=== PATIENT | female | born 1935 | race Caucasian/White ===

== ENCOUNTER 2023-06-19 22:28 | Inpatient (IN) | payer MEDICARE ==
[~2023-06-19 22:28] MED LIST: Iopamidol-370 76% 500 ML MDV (1 ML CHARGE) ONE
[2023-06-19 23:00] LABS: #Basophils 0.1 thou/uL (0.0-0.2); #Monocytes 2.8 thou/uL (0.11-0.59); %Basophils 0.2 % (0.0-1.0); %Lymphocytes 7.8 % (21.0-51.0); %Monocytes 11.1 % (0.0-10.0); %Neutrophils 79.9 % (42.0-75.0); Hematocrit 34.8 % (36.0-47.0); Hemoglobin 11.8 g/dL (12.0-16.0); Mean Corpuscular HGB CONC 33.9 g/dL (32.0-36.0); Mean Corpuscular Hemoglobin 28.6 pg (27.0-31.0); Mean Corpuscular Volume 84.3 fl (78.0-98.0); Mean Platelet Volume 9.6 fL (7.4-10.4); Platelet Count 360 10x3/uL (130-400); RBC Distribution Width 14.4 % (11.5-14.5); Red Blood Cell (RBC) Count 4.13 mill/uL (4.20-5.40)
[2023-06-19 23:22] LABS: ALT (SGPT) 15 U/L (8-55); AST (SGOT) 14 U/L (5-34); Albumin 3.4 g/dL (3.4-4.8); Alkaline Phosphatase 90 U/L (40-110); Anion Gap 11 mmol/L (10-20); BUN (Urea Nitrogen) 13 mg/dL (9.8-20.1); Bilirubin, Total 0.5 mg/dL (0.2-1.2); Calc. Creatinine Clearance 0 mL/min (70-130); Calcium 9.4 mg/dL (7.8-10.44); Carbon Dioxide 25 mmol/L (23-31); Chloride 94 mmol/L (98-107); Estimated GFR 88; Globulin 3.2 g/dL (2.4-3.5); Glucose 179 mg/dL (83-110); Potassium 3.4 mmol/L (3.5-5.1); Protein, Total 6.6 g/dL (5.8-8.1); Sodium 127 mmol/L (136-145)
[2023-06-20 00:04] LABS: INR-International Normal Ratio 1.1; Prothrombin Time 14.7 sec (12.0-14.7)
[2023-06-20 00:06] LABS: PTT 39.4 sec (22.9-36.1)
[2023-06-20] MEDS ORDERED: Acetaminophen 650 MG Suppository PR PRN (00:43)
[2023-06-20] MEDS ORDERED: Ondansetron ODT 4 MG TAB PO PRN (00:43)
[2023-06-20] MEDS ORDERED: Ondansetron PF 4 MG/2 ML Vial IVP PRN (00:43)
[2023-06-20] MEDS ORDERED: Dextrose 5% in Water 1,000 ML IV PRN (00:58)
[2023-06-20] MEDS ORDERED: Glucagon 1 MG/ML KIT IM PRN (00:58)
[2023-06-20] MEDS ORDERED: Dextrose 50% Abboject 50 ML SYRINGE SLOW IVP PRN (00:58)
[2023-06-20] MEDS ORDERED: HumaLOG 300 UNITS/3 ML VIAL SC PRN ×2 (00:58)
[2023-06-20] MEDS ORDERED: Piperacillin/Tazobactam 3.375 GM in Sodium Chloride 0.9% 100 ML IVPB SCH ×2 (02:00→06:00)
[2023-06-20] MEDS ORDERED: Pantoprazole 40 MG VIAL IVP SCH ×3 (02:00→09:00)
[2023-06-20 02:23] LABS: Hematocrit 37.8 % (36.0-47.0); Hemoglobin 12.6 g/dL (12.0-16.0); Mean Corpuscular HGB CONC 33.3 g/dL (32.0-36.0); Mean Corpuscular Hemoglobin 29.2 pg (27.0-31.0); Mean Platelet Volume 9.4 fL (7.4-10.4); Platelet Count 324 10x3/uL (130-400); RBC Distribution Width 14.5 % (11.5-14.5); Red Blood Cell (RBC) Count 4.31 mill/uL (4.20-5.40); White Blood Cell (WBC) Count 25.6 10x3/uL (4.8-10.8)
[2023-06-20 02:29] LABS: Delete Auto Diff?? YES; Manual Diff?? YES; Mean Corpuscular Volume 87.7 fl (78.0-98.0)
[2023-06-20 02:49] LABS: Anisocytosis SLIGHT = 6-15 cells HPF (0-5); Band 5 % (5-11); Burr Cells SLIGHT = 2-5 cells HPF (0-1); CellaVision Operator ID LAB.JMM; Large Platelets 0.9 % (0-5); Lymphocytes 4 % (21-51); Macrocytosis SLIGHT = 6-15 cells HPF (0-5); Monocytes 3 % (0-10); Neutrophil 87 % (42-75); Nucleated RBC (Manual Ct) 1 % (0); Platelet Adequacy Comment Platelets Normal; Smudge Cells 0.9 %; Total Cell Count 116
[2023-06-20 02:58] LABS: Anion Gap 15 mmol/L (10-20); BUN (Urea Nitrogen) 14 mg/dL (9.8-20.1); Calc. Creatinine Clearance 89 mL/min (70-130); Calcium 9.5 mg/dL (7.8-10.44); Carbon Dioxide 19 mmol/L (23-31); Chloride 95 mmol/L (98-107); Estimated GFR 87; Glucose 194 mg/dL (83-110); Magnesium 1.8 mg/dL (1.6-2.6); Potassium 3.3 mmol/L (3.5-5.1); Sodium 126 mmol/L (136-145)
[2023-06-20] MEDS: Sodium Chloride 0.9% 1,000 ML IV SCH ×3 (03:17→14:39)
[2023-06-20] MEDS: Piperacillin/Tazobactam 3.375 GM in Sodium Chloride 0.9% 100 ML IVPB SCH ×3 (03:18→21:02)
[2023-06-20] MEDS ORDERED: Potassium Chloride 20 MEQ in Premix Bag 1 BAG IVPB SCH (03:30)
[2023-06-20] MEDS ORDERED: Electrolyte Replacement Protocol 1 EACH FS PRN (03:45)
[2023-06-20] MEDS ORDERED: Magnesium 2 GM/50 ML(in water) 2 GM in Premix Bag 1 BAG IVPB SCH (06:00)
[2023-06-20] MEDS ORDERED: Electrolyte Replacement Protocol 1 EACH FS SCH (07:00)
[2023-06-20] MEDS: Pantoprazole 40 MG VIAL IVP SCH (09:30)
[2023-06-20 10:27] LABS: Anion Gap 12 mmol/L (10-20); BUN (Urea Nitrogen) 16 mg/dL (9.8-20.1); Calc. Creatinine Clearance 84 mL/min (70-130); Calcium 9.4 mg/dL (7.8-10.44); Carbon Dioxide 25 mmol/L (23-31); Chloride 95 mmol/L (98-107); Estimated GFR 85; Glucose 155 mg/dL (83-110); Potassium 3.2 mmol/L (3.5-5.1); Sodium 129 mmol/L (136-145)
[2023-06-20] MEDS ORDERED: Polyethylene Glycol 3350 17 GM Packet PO SCH (12:00)
[2023-06-20] MEDS: Acetaminophen 325 MG TAB PO PRN (18:47)
[2023-06-20] MEDS ORDERED: ALPRAZolam 0.5 MG TAB PO PRN (20:35)
[2023-06-20] MEDS ORDERED: Cyclobenzaprine 10 MG TAB PO PRN (20:35)
[2023-06-20] MEDS ORDERED: ALPRAZolam 0.5 MG TAB PO SCH (21:00)
[2023-06-20] MEDS: Docusate 100 MG CAP PO SCH (21:01)
[2023-06-20] MEDS: Polyethylene Glycol 3350 17 GM Packet PO SCH (21:02)
[2023-06-20] MEDS: traMADol HCl 50 MG TAB PO PRN (21:03)
[2023-06-21] MEDS: Sodium Chloride 0.9% 1,000 ML IV SCH ×2 (02:36→15:55)
[2023-06-21] MEDS: traMADol HCl 50 MG TAB PO PRN ×2 (02:36→13:50)
[2023-06-21] MEDS: Acetaminophen 325 MG TAB PO PRN (02:37)
[2023-06-21] MEDS: Piperacillin/Tazobactam 3.375 GM in Sodium Chloride 0.9% 100 ML IVPB SCH ×2 (03:31→13:50)
[2023-06-21] MEDS ORDERED: Morphine 2 MG/ML VIAL SLOW IVP SCH (04:15)
[2023-06-21 05:28] VITALS: BMI 31.5
[2023-06-21] MEDS ORDERED: Fleet Saline Enema 133 ML BOT PR SCH (06:00)
[2023-06-21 06:26] LABS: #Basophils 0.1 thou/uL (0.0-0.2); #Monocytes 1.4 thou/uL (0.11-0.59); #Neutrophils 9.5 thou/uL (1.40-6.50); %Basophils 0.5 % (0.0-1.0); %Eosinophils 0.1 % (0.0-10.0); %Monocytes 10.8 % (0.0-10.0); %Neutrophils 74.1 % (42.0-75.0); Hematocrit 32.9 % (36.0-47.0); Hemoglobin 10.8 g/dL (12.0-16.0); Mean Corpuscular HGB CONC 32.8 g/dL (32.0-36.0); Mean Corpuscular Volume 88.4 fl (78.0-98.0); Mean Platelet Volume 9.9 fL (7.4-10.4); Platelet Count 306 10x3/uL (130-400); RBC Distribution Width 14.5 % (11.5-14.5); Red Blood Cell (RBC) Count 3.72 mill/uL (4.20-5.40); White Blood Cell (WBC) Count 12.8 10x3/uL (4.8-10.8)
[2023-06-21 06:31] LABS: Anion Gap 9 mmol/L (10-20); BUN (Urea Nitrogen) 13 mg/dL (9.8-20.1); Calc. Creatinine Clearance 99 mL/min (70-130); Calcium 8.9 mg/dL (7.8-10.44); Carbon Dioxide 27 mmol/L (23-31); Chloride 99 mmol/L (98-107); Estimated GFR 89; Glucose 156 mg/dL (83-110); Potassium 3.1 mmol/L (3.5-5.1); Sodium 132 mmol/L (136-145)
[2023-06-21] MEDS ORDERED: Potassium Chloride 20 MEQ TAB PO SCH (08:00)
[2023-06-21] MEDS: Polyethylene Glycol 3350 17 GM Packet PO SCH (08:25)
[2023-06-21] MEDS: Docusate 100 MG CAP PO SCH (08:26)
[2023-06-21] MEDS: Pantoprazole 40 MG VIAL IVP SCH (08:27)
[2023-06-21 08:44] VITALS: TEMP 97.9
[2023-06-21] MEDS ORDERED: Citalopram 10 MG TAB PO SCH (09:00)
[2023-06-21] MEDS ORDERED: fentaNYL 50 mcg/mL 1 mL Vial ONE ×2 (11:08→12:39)
[2023-06-21] MEDS ORDERED: PROPOFOL 200 MG/20 ML VIAL ONE (12:06)
[2023-06-21] MEDS ORDERED: Lidocaine 1% PF 5 ML VIAL ONE (12:06)
[2023-06-21] MEDS ORDERED: Ondansetron HCl/PF 4 MG/2 ML Vial IVP PRN (12:28)
[2023-06-21] MEDS ORDERED: ALPRAZolam 0.5 MG TAB PO SCH (16:00)
[2023-06-21 17:52] VITALS: BP 138/75
== END 2023-06-21 17:55 | DRG 872 ==
LOC: ERS 22:28 → CCU 06-20 00:19 → T4-A 06-20 12:37
PROVIDERS: ADMIT Student in an Organized Health Care Education/Training Program; ATTEND Internal Medicine
PROC: 30233N1 Transfusion of Nonautologous Red Blood Cells into Peripheral Vein, Percutaneous Approach (ICD-10-PCS; 2023-06-19)
PROC: 0DJD8ZZ Inspection of Lower Intestinal Tract, Via Natural or Artificial Opening Endoscopic (ICD-10-PCS; principal; 2023-06-21)
DX: A41.9 Sepsis, unspecified organism (principal); K51.211 Ulcerative (chronic) proctitis with rectal bleeding; N39.0 Urinary tract infection, site not specified; K92.2 Gastrointestinal hemorrhage, unspecified; D62 Acute posthemorrhagic anemia; E87.1 Hypo-osmolality and hyponatremia; A09 Infectious gastroenteritis and colitis, unspecified; K59.00 Constipation, unspecified; E78.5 Hyperlipidemia, unspecified; R29.6 Repeated falls; E87.6 Hypokalemia; I71.40 Abdominal aortic aneurysm, without rupture, unspecified; I25.10 Atherosclerotic heart disease of native coronary artery without angina pectoris; I12.9 Hypertensive chronic kidney disease with stage 1 through stage 4 chronic kidney disease, or unspecified chronic kidney disease; E11.22 Type 2 diabetes mellitus with diabetic chronic kidney disease; N18.2 Chronic kidney disease, stage 2 (mild); E66.9 Obesity, unspecified; Z96.653 Presence of artificial knee joint, bilateral; Z79.82 Long term (current) use of aspirin; Z79.899 Other long term (current) drug therapy; Z90.89 Acquired absence of other organs; Z68.31 Body mass index [BMI] 31.0-31.9, adult; E89.0 Postprocedural hypothyroidism
CPT/HCPCS: 36415; 36416; 36430; 51701; 70450; 71045; 71275; 72125; 74177; 80048; 80053; 81001; 83605; 83690; 83735; 83880; 84145; 84443; 84484; 85025; 85379; 85610; 85730; 86140; 86850; 86900; 86901; 87040; 87077; 87086; 87186; 93005; 94760; 96365; 96366; C9113; J0696; J1815; J2272; J2543; J2704; J3010; J3475; J3480; J3490; J7050; P9016; Q9967

== ENCOUNTER 2023-06-25 21:13 | Observation (INO) | payer MEDICARE ==
[2023-06-25 21:48] LABS: #Basophils 0.1 thou/uL (0.0-0.2); #Monocytes 1.2 thou/uL (0.11-0.59); #Neutrophils 5.8 thou/uL (1.40-6.50); %Basophils 0.5 % (0.0-1.0); %Eosinophils 0.2 % (0.0-10.0); %Lymphocytes 28.1 % (21.0-51.0); %Monocytes 11.6 % (0.0-10.0); %Neutrophils 55.3 % (42.0-75.0); Hematocrit 30.6 % (36.0-47.0); Hemoglobin 9.9 g/dL (12.0-16.0); Mean Corpuscular HGB CONC 32.4 g/dL (32.0-36.0); Mean Corpuscular Volume 89.7 fl (78.0-98.0); Mean Platelet Volume 8.8 fL (7.4-10.4); Platelet Count 351 10x3/uL (130-400); RBC Distribution Width 14.9 % (11.5-14.5); Red Blood Cell (RBC) Count 3.41 mill/uL (4.20-5.40); White Blood Cell (WBC) Count 10.5 10x3/uL (4.8-10.8)
[2023-06-25 22:02] LABS: PTT 33.7 sec (22.9-36.1); Prothrombin Time 13.9 sec (12.0-14.7)
[2023-06-25] MEDS ORDERED: Pantoprazole 40 MG VIAL ONE (22:42)
[2023-06-25] MEDS ORDERED: Morphine 4 MG/ML VIAL ONE (22:42)
[2023-06-25 22:53] LABS: ALT (SGPT) 21 U/L (8-55); AST (SGOT) 17 U/L (5-34); Albumin 3.3 g/dL (3.4-4.8); Alkaline Phosphatase 81 U/L (40-110); Anion Gap 12 mmol/L (10-20); BUN (Urea Nitrogen) 13 mg/dL (9.8-20.1); Bilirubin, Total 0.2 mg/dL (0.2-1.2); Calc. Creatinine Clearance 0 mL/min (70-130); Calcium 9.3 mg/dL (7.8-10.44); Carbon Dioxide 26 mmol/L (23-31); Chloride 101 mmol/L (98-107); Estimated GFR 81; Globulin 2.7 g/dL (2.4-3.5); Glucose 166 mg/dL (83-110); Iron 34 ug/dL (50-170); Iron Binding Capacity, Total 278 mcg/dL (265-497); Potassium 4.1 mmol/L (3.5-5.1); Sodium 135 mmol/L (136-145)
[2023-06-26] MEDS ORDERED: Ondansetron PF 4 MG/2 ML Vial IVP PRN (00:03)
[2023-06-26] MEDS ORDERED: Acetaminophen 650 MG Suppository PR PRN (00:03)
[2023-06-26] MEDS ORDERED: Ondansetron ODT 4 MG TAB PO PRN (00:03)
[2023-06-26] MEDS ORDERED: Acetaminophen 325 MG TAB PO PRN (00:03)
[2023-06-26 01:11] VITALS: BMI 29.7
[2023-06-26] MEDS ORDERED: Glucagon 1 MG/ML KIT IM PRN (01:43)
[2023-06-26] MEDS ORDERED: HumaLOG 300 UNITS/3 ML VIAL SC PRN ×2 (01:43)
[2023-06-26] MEDS ORDERED: Dextrose 5% in Water 1,000 ML IV PRN (01:43)
[2023-06-26] MEDS ORDERED: Dextrose 50% Abboject 50 ML SYRINGE SLOW IVP PRN (01:43)
[2023-06-26] MEDS: Morphine 4 MG/ML VIAL SLOW IVP PRN ×2 (02:17→06:15)
[2023-06-26] MEDS: Sodium Chloride 0.9% 1,000 ML IV SCH ×2 (02:19→07:29)
[2023-06-26 02:22] LABS: #Basophils 0.1 thou/uL (0.0-0.2); #Monocytes 1.1 thou/uL (0.11-0.59); #Neutrophils 6.4 thou/uL (1.40-6.50); %Basophils 0.5 % (0.0-1.0); %Eosinophils 0.1 % (0.0-10.0); %Lymphocytes 25.4 % (21.0-51.0); %Monocytes 10.1 % (0.0-10.0); %Neutrophils 57.8 % (42.0-75.0); Hematocrit 28.5 % (36.0-47.0); Hemoglobin 9.2 g/dL (12.0-16.0); Mean Corpuscular HGB CONC 32.9 g/dL (32.0-36.0); Mean Corpuscular Hemoglobin 29.1 pg (27.0-31.0); Mean Corpuscular Volume 88.6 fl (78.0-98.0); Platelet Count 324 10x3/uL (130-400); RBC Distribution Width 14.7 % (11.5-14.5); Red Blood Cell (RBC) Count 3.16 mill/uL (4.20-5.40)
[2023-06-26 02:52] LABS: Troponin I Less than 0.010 ng/mL (< 0.028)
[2023-06-26 03:04] LABS: Anion Gap 11 mmol/L (10-20); BUN (Urea Nitrogen) 13 mg/dL (9.8-20.1); Calc. Creatinine Clearance 94 mL/min (70-130); Calcium 8.9 mg/dL (7.8-10.44); Carbon Dioxide 25 mmol/L (23-31); Chloride 104 mmol/L (98-107); Estimated GFR 88; Glucose 146 mg/dL (83-110); Potassium 4.1 mmol/L (3.5-5.1); Sodium 136 mmol/L (136-145)
[2023-06-26 03:10] LABS: Troponin I Less than 0.010 ng/mL (< 0.028)
[2023-06-26] MEDS ORDERED: Fleet Saline Enema 133 ML BOT PR SCH (11:15)
[2023-06-26] MEDS ORDERED: HYDROcodone/Acetaminophen 5/325 mg Tablet PO PRN (13:07)
[2023-06-26] MEDS ORDERED: Cyclobenzaprine 10 MG TAB PO PRN (13:07)
[2023-06-26] MEDS ORDERED: ALPRAZolam 0.5 MG TAB PO PRN (13:07)
[2023-06-26 13:19] VITALS: TEMP 98
[2023-06-26] MEDS ORDERED: PROPOFOL 200 MG/20 ML VIAL ONE (14:15)
[2023-06-26 17:02] VITALS: BP 142/82
[2023-06-26] MEDS ORDERED: Polyethylene Glycol 3350 17 GM Packet PO SCH (21:00)
[2023-06-26] MEDS ORDERED: Senokot S 8.6-50 MG TAB PO SCH (21:00)
[2023-06-26] MEDS ORDERED: Non-Formulary Item 1 EACH (Cholecalciferol (Vitamin D3) [Vitamin D3] 125 MCG Tablet) PO SCH (21:00)
[2023-06-27] MEDS ORDERED: Multivit, Therapeutic 1 TAB PO SCH (09:00)
[2023-06-27] MEDS ORDERED: Isosorbide Mononitrate 30 MG ER.TAB PO SCH (09:00)
[2023-06-27] MEDS ORDERED: Calcium Carbonate 500 MG TAB PO SCH (09:00)
[2023-06-27] MEDS ORDERED: Saccharomyces boulardii 250 MG CAP PO SCH (09:00)
[2023-06-27] MEDS ORDERED: Citalopram 10 MG TAB PO SCH (09:00)
== END 2023-06-26 17:56 ==
LOC: ERS 21:13 → T4-A 22:57 → INTOOBSV 22:57
PROVIDERS: ADMIT Student in an Organized Health Care Education/Training Program; ATTEND Family Medicine
PROC: 0W3P8ZZ Control Bleeding in Gastrointestinal Tract, Via Natural or Artificial Opening Endoscopic (ICD-10-PCS; principal; 2023-06-26)
DX: K92.2 Gastrointestinal hemorrhage, unspecified (principal); D62 Acute posthemorrhagic anemia; E11.9 Type 2 diabetes mellitus without complications; F41.8 Other specified anxiety disorders; K51.80 Other ulcerative colitis without complications; K52.89 Other specified noninfective gastroenteritis and colitis; K59.00 Constipation, unspecified; I10 Essential (primary) hypertension; I25.10 Atherosclerotic heart disease of native coronary artery without angina pectoris; G83.4 Cauda equina syndrome; Z96.653 Presence of artificial knee joint, bilateral; Z79.4 Long term (current) use of insulin; Z79.899 Other long term (current) drug therapy; Z79.891 Long term (current) use of opiate analgesic; Z90.89 Acquired absence of other organs
CPT/HCPCS: 36415; 36416; 74177; 80048; 80053; 82728; 83540; 83550; 84484; 85025; 85610; 85730; 86850; 86900; 86901; 96374; 96375; C9113; J2270; J2704; J7050; Q9967

== ENCOUNTER 2023-08-04 13:24 | Emergency (ER) | payer MEDICARE ==
[2023-08-04] MEDS ORDERED: Nitrofurantoin Monohyd/M-Cryst 100 MG CAP ONE (15:10)
== END 2023-08-04 15:11 | disposition home or self-care (01) ==
LOC: ERS 13:24
DX: N39.0 Urinary tract infection, site not specified (principal); E78.5 Hyperlipidemia, unspecified; I10 Essential (primary) hypertension; E11.9 Type 2 diabetes mellitus without complications

== ENCOUNTER 2023-08-05 18:41 | Inpatient (IN) | payer MEDICARE ==
[2023-08-05 20:08] LABS: #Monocytes 0.9 thou/uL (0.11-0.59); #Neutrophils 3.5 thou/uL (1.40-6.50); %Basophils 0.4 % (0.0-1.0); %Lymphocytes 33.7 % (21.0-51.0); %Monocytes 13.2 % (0.0-10.0); Hematocrit 34.7 % (36.0-47.0); Hemoglobin 10.9 g/dL (12.0-16.0); Mean Corpuscular HGB CONC 31.4 g/dL (32.0-36.0); Mean Corpuscular Hemoglobin 27.5 pg (27.0-31.0); Mean Corpuscular Volume 87.4 fl (78.0-98.0); Mean Platelet Volume 9.2 fL (7.4-10.4); Platelet Count 286 10x3/uL (130-400); RBC Distribution Width 14.7 % (11.5-14.5); Red Blood Cell (RBC) Count 3.97 mill/uL (4.20-5.40); White Blood Cell (WBC) Count 6.7 10x3/uL (4.8-10.8)
[2023-08-05 20:32] LABS: ALT (SGPT) 9 U/L (8-55); AST (SGOT) 13 U/L (5-34); Albumin 3.9 g/dL (3.4-4.8); Alkaline Phosphatase 89 U/L (40-110); Anion Gap 15 mmol/L (10-20); BUN (Urea Nitrogen) 13 mg/dL (9.8-20.1); Bilirubin, Total Less than 0.2 mg/dL (0.2-1.2); Calc. Creatinine Clearance 0 mL/min (70-130); Calcium 9.7 mg/dL (7.8-10.44); Carbon Dioxide 24 mmol/L (23-31); Chloride 99 mmol/L (98-107); Estimated GFR 86; Globulin 2.9 g/dL (2.4-3.5); Glucose 151 mg/dL (83-110); Potassium 3.9 mmol/L (3.5-5.1); Protein, Total 6.8 g/dL (5.8-8.1); Sodium 134 mmol/L (136-145)
[2023-08-05] MEDS ORDERED: Acetaminophen 650 MG Suppository PR PRN (21:01)
[2023-08-05] MEDS ORDERED: Acetaminophen 325 MG TAB PO PRN (21:01)
[2023-08-05] MEDS ORDERED: Ondansetron ODT 4 MG TAB PO PRN (21:01)
[2023-08-05] MEDS ORDERED: Ondansetron PF 4 MG/2 ML Vial IVP PRN (21:01)
[2023-08-05] MEDS ORDERED: HumaLOG 300 UNITS/3 ML VIAL SC PRN ×2 (21:16)
[2023-08-05] MEDS ORDERED: Dextrose 50% Abboject 50 ML SYRINGE SLOW IVP PRN (21:16)
[2023-08-05] MEDS ORDERED: Glucagon 1 MG/ML KIT IM PRN (21:16)
[2023-08-05] MEDS ORDERED: Dextrose 5% in Water 1,000 ML IV PRN (21:16)
[2023-08-05] MEDS ORDERED: Piperacillin/Tazobactam 4.5 GM in Sodium Chloride 0.9% 100 ML IVPB SCH (23:00)
[2023-08-06] MEDS: Sodium Chloride 0.9% 1,000 ML IV SCH ×2 (00:48→09:04)
[2023-08-06 01:06] VITALS: BMI 31.1
[2023-08-06] MEDS: Melatonin 3 MG TAB PO PRN ×2 (02:16→20:47)
[2023-08-06] MEDS: traMADol HCl 50 MG TAB PO PRN ×3 (02:16→16:43)
[2023-08-06] MEDS: Piperacillin/Tazobactam 3.375 GM in Sodium Chloride 0.9% 100 ML IVPB SCH ×3 (04:34→20:47)
[2023-08-06 05:55] LABS: #Monocytes 0.9 thou/uL (0.11-0.59); #Neutrophils 3.3 thou/uL (1.40-6.50); %Basophils 0.4 % (0.0-1.0); %Lymphocytes 25.1 % (21.0-51.0); %Monocytes 15.6 % (0.0-10.0); %Neutrophils 58.4 % (42.0-75.0); Hematocrit 34.4 % (36.0-47.0); Hemoglobin 10.4 g/dL (12.0-16.0); Mean Corpuscular HGB CONC 30.2 g/dL (32.0-36.0); Mean Corpuscular Hemoglobin 26.8 pg (27.0-31.0); Mean Corpuscular Volume 88.7 fl (78.0-98.0); Mean Platelet Volume 9.3 fL (7.4-10.4); Platelet Count 312 10x3/uL (130-400); RBC Distribution Width 14.6 % (11.5-14.5); Red Blood Cell (RBC) Count 3.88 mill/uL (4.20-5.40); White Blood Cell (WBC) Count 5.7 10x3/uL (4.8-10.8)
[2023-08-06 06:29] LABS: Anion Gap 12 mmol/L (10-20); BUN (Urea Nitrogen) 9 mg/dL (9.8-20.1); Calc. Creatinine Clearance 110 mL/min (70-130); Calcium 9.4 mg/dL (7.8-10.44); Carbon Dioxide 28 mmol/L (23-31); Chloride 101 mmol/L (98-107); Estimated GFR 90; Glucose 128 mg/dL (83-110); Potassium 3.5 mmol/L (3.5-5.1); Sodium 137 mmol/L (136-145)
[2023-08-06] MEDS: ALPRAZolam 1 MG TAB PO PRN (16:44)
[2023-08-06] MEDS: Cholecalciferol 1,000 UNITS (25 MCG) TAB PO SCH (20:47)
[2023-08-07] MEDS: traMADol HCl 50 MG TAB PO PRN ×3 (00:26→20:08)
[2023-08-07] MEDS: ALPRAZolam 1 MG TAB PO PRN ×3 (00:26→20:14)
[2023-08-07] MEDS: Sodium Chloride 0.9% 1,000 ML IV SCH ×2 (00:28→12:40)
[2023-08-07] MEDS: Piperacillin/Tazobactam 3.375 GM in Sodium Chloride 0.9% 100 ML IVPB SCH ×3 (03:47→20:03)
[2023-08-07 06:53] LABS: #Monocytes 0.9 thou/uL (0.11-0.59); #Neutrophils 3.5 thou/uL (1.40-6.50); %Basophils 0.2 % (0.0-1.0); %Eosinophils 0.2 % (0.0-10.0); %Lymphocytes 27.3 % (21.0-51.0); %Monocytes 14.2 % (0.0-10.0); %Neutrophils 57.8 % (42.0-75.0); Hematocrit 36.8 % (36.0-47.0); Hemoglobin 11.1 g/dL (12.0-16.0); Mean Corpuscular HGB CONC 30.2 g/dL (32.0-36.0); Mean Corpuscular Hemoglobin 26.6 pg (27.0-31.0); Mean Platelet Volume 10.4 fL (7.4-10.4); Platelet Count 316 10x3/uL (130-400); RBC Distribution Width 14.6 % (11.5-14.5); Red Blood Cell (RBC) Count 4.18 mill/uL (4.20-5.40); White Blood Cell (WBC) Count 6.1 10x3/uL (4.8-10.8)
[2023-08-07 07:20] LABS: Anion Gap 14 mmol/L (10-20); BUN (Urea Nitrogen) 9 mg/dL (9.8-20.1); Calc. Creatinine Clearance 112 mL/min (70-130); Calcium 9.8 mg/dL (7.8-10.44); Carbon Dioxide 27 mmol/L (23-31); Chloride 102 mmol/L (98-107); Estimated GFR 90; Glucose 113 mg/dL (83-110); Potassium 3.6 mmol/L (3.5-5.1); Sodium 139 mmol/L (136-145)
[2023-08-07] MEDS: Cholecalciferol 1,000 UNITS (25 MCG) TAB PO SCH ×2 (09:18→20:03)
[2023-08-07] MEDS: Citalopram 20 MG TAB PO SCH (09:19)
[2023-08-07] MEDS: Isosorbide Mononitrate 30 MG ER.TAB PO SCH (09:19)
[2023-08-07] MEDS: Melatonin 3 MG TAB PO PRN (20:14)
[2023-08-08] MEDS: traMADol HCl 50 MG TAB PO PRN ×3 (00:50→12:05)
[2023-08-08] MEDS: Piperacillin/Tazobactam 3.375 GM in Sodium Chloride 0.9% 100 ML IVPB SCH ×2 (04:10→12:04)
[2023-08-08] MEDS: ALPRAZolam 1 MG TAB PO PRN ×2 (04:10→12:05)
[2023-08-08] MEDS: Cholecalciferol 1,000 UNITS (25 MCG) TAB PO SCH (09:20)
[2023-08-08] MEDS: Citalopram 20 MG TAB PO SCH (09:20)
[2023-08-08] MEDS: Isosorbide Mononitrate 30 MG ER.TAB PO SCH (09:20)
[2023-08-08 16:16] VITALS: BP 107/70; TEMP 97.5
== END 2023-08-08 15:24 | disposition home or self-care (01) | DRG 690 ==
LOC: ERS 18:41 → T4-A 20:58
PROVIDERS: ADMIT Student in an Organized Health Care Education/Training Program; ATTEND Family Medicine
DX: N30.00 Acute cystitis without hematuria (principal); E87.1 Hypo-osmolality and hyponatremia; I10 Essential (primary) hypertension; E78.5 Hyperlipidemia, unspecified; E11.9 Type 2 diabetes mellitus without complications; H91.90 Unspecified hearing loss, unspecified ear; R29.6 Repeated falls; Z79.899 Other long term (current) drug therapy; F32.A Depression, unspecified; Z96.653 Presence of artificial knee joint, bilateral; B96.89 Other specified bacterial agents as the cause of diseases classified elsewhere; Z90.89 Acquired absence of other organs; Z79.4 Long term (current) use of insulin
CPT/HCPCS: 36415; 36416; 80048; 80053; 85025; 93005; 96374; 99283; J1650; J2543; J3490; J7050

== ENCOUNTER 2023-08-31 17:59 | Inpatient (IN) | payer MEDICARE ==
[2023-08-31 19:32] LABS: Bacteria/HPF 1+ HPF (None Seen); Bilirubin Negative (Negative); Blood, Urine 1+ (Negative); CAUTI Indications for Culture Alt mental st,lethar; Clarity Turbid (Clear); Glucose, Urine (Dipstick) Normal (Negative); Ketone, Urine Negative (Negative); Leukocyte 500 Leu/uL (Negative); Nitrite Negative (Negative); Protein, Urine (Dipstick) 10 mg/dL (Neg-Trace); Specific Gravity, Urine 1.013 (1.002-1.036); Squamous Epithelial 0-3 HPF (0-3); Urine Culture Reflex Yes Yes; Urobilinogen Normal mg/dL (Less than 2); WBC/HPF Greater than 50 HPF (0-3); Yeast-Budding 2+ HPF (None Seen); pH, Urine 6.5 (5.0-9.0)
[2023-08-31 19:46] LABS: #Monocytes 0.9 thou/uL (0.11-0.59); #Neutrophils 3.3 thou/uL (1.40-6.50); %Basophils 0.5 % (0.0-1.0); %Eosinophils 0.2 % (0.0-10.0); %Lymphocytes 32.4 % (21.0-51.0); %Neutrophils 52.4 % (42.0-75.0); Hemoglobin 11.3 g/dL (12.0-16.0); Mean Corpuscular HGB CONC 30.5 g/dL (32.0-36.0); Mean Corpuscular Hemoglobin 25.9 pg (27.0-31.0); Mean Corpuscular Volume 84.7 fl (78.0-98.0); Mean Platelet Volume 9.1 fL (7.4-10.4); Platelet Count 310 10x3/uL (130-400); RBC Distribution Width 14.8 % (11.5-14.5); Red Blood Cell (RBC) Count 4.37 mill/uL (4.20-5.40); White Blood Cell (WBC) Count 6.4 10x3/uL (4.8-10.8)
[2023-08-31] MEDS ORDERED: Meropenem 1 GM in Sodium Chloride 0.9% 100 ML IVPB SCH (20:00)
[2023-08-31 20:12] LABS: Albumin 3.5 g/dL (3.4-4.8)
[2023-08-31 20:13] LABS: Chloride 103 mmol/L (98-107); Sodium 136 mmol/L (136-145)
[2023-08-31 20:14] LABS: Calcium 9.6 mg/dL (7.8-10.44); Glucose 132 mg/dL (83-110)
[2023-08-31 20:15] LABS: Protein, Total 7.5 g/dL (5.8-8.1)
[2023-08-31 20:16] LABS: Anion Gap 16 mmol/L (10-20); Bilirubin, Total Less than 0.2 mg/dL (0.2-1.2); Carbon Dioxide 21 mmol/L (23-31)
[2023-08-31 20:17] LABS: Alkaline Phosphatase 87 U/L (40-110)
[2023-08-31 20:18] LABS: Calc. Creatinine Clearance 0 mL/min (70-130); Estimated GFR 86
[2023-08-31 20:19] LABS: BUN (Urea Nitrogen) 13 mg/dL (9.8-20.1)
[2023-08-31 20:20] LABS: ALT (SGPT) 11 U/L (8-55); AST (SGOT) 20 U/L (5-34)
[2023-08-31] MEDS ORDERED: Acetaminophen 325 MG TAB PO PRN (23:27)
[2023-08-31] MEDS ORDERED: Ondansetron ODT 4 MG TAB PO PRN (23:27)
[2023-08-31] MEDS ORDERED: HumaLOG 300 UNITS/3 ML VIAL SC PRN ×2 (23:27)
[2023-08-31] MEDS ORDERED: Dextrose 5% in Water 1,000 ML IV PRN (23:27)
[2023-08-31] MEDS ORDERED: Ondansetron PF 4 MG/2 ML Vial IVP PRN (23:27)
[2023-08-31] MEDS ORDERED: Glucagon 1 MG/ML KIT IM PRN (23:27)
[2023-08-31] MEDS ORDERED: Dextrose 50% Abboject 50 ML SYRINGE SLOW IVP PRN (23:27)
[2023-09-01] MEDS ORDERED: Calcium Carbonate 500 MG ChewTAB PO PRN (01:01)
[2023-09-01] MEDS ORDERED: Polyethylene Glycol 3350 17 GM Packet PO PRN (01:01)
[2023-09-01] MEDS ORDERED: ALIROCUMAB 150 MG/ML SC SCH (01:15)
[2023-09-01 02:35] VITALS: BMI 31.0
[2023-09-01 06:22] LABS: #Monocytes 0.8 thou/uL (0.11-0.59); #Neutrophils 3.1 thou/uL (1.40-6.50); %Basophils 0.4 % (0.0-1.0); %Eosinophils 0.2 % (0.0-10.0); %Monocytes 14.9 % (0.0-10.0); Hematocrit 35.2 % (36.0-47.0); Hemoglobin 10.8 g/dL (12.0-16.0); Mean Corpuscular HGB CONC 30.7 g/dL (32.0-36.0); Mean Corpuscular Hemoglobin 25.3 pg (27.0-31.0); Mean Corpuscular Volume 82.4 fl (78.0-98.0); Mean Platelet Volume 9.3 fL (7.4-10.4); Platelet Count 311 10x3/uL (130-400); RBC Distribution Width 14.9 % (11.5-14.5); Red Blood Cell (RBC) Count 4.27 mill/uL (4.20-5.40); White Blood Cell (WBC) Count 5.7 10x3/uL (4.8-10.8)
[2023-09-01 06:46] LABS: Anion Gap 12 mmol/L (10-20); BUN (Urea Nitrogen) 9 mg/dL (9.8-20.1); Calc. Creatinine Clearance 112 mL/min (70-130); Calcium 9.4 mg/dL (7.8-10.44); Carbon Dioxide 28 mmol/L (23-31); Chloride 104 mmol/L (98-107); Estimated GFR 90; Glucose 121 mg/dL (83-110); Potassium 3.7 mmol/L (3.5-5.1); Sodium 140 mmol/L (136-145)
[2023-09-01] MEDS: Citalopram 10 MG TAB PO SCH (09:10)
[2023-09-01] MEDS: Isosorbide Mononitrate 30 MG ER.TAB PO SCH (09:11)
[2023-09-01] MEDS: Multivit, Therapeutic 1 TAB PO SCH (09:11)
[2023-09-01] MEDS: ALPRAZolam 0.5 MG TAB PO SCH ×2 (13:22→20:48)
[2023-09-01] MEDS: traMADol HCl 50 MG TAB PO SCH ×4 (13:23→22:09)
[2023-09-01] MEDS ORDERED: Mineral Oil ENEMA PR SCH (20:00)
[2023-09-01] MEDS: Melatonin 3 MG TAB PO SCH (20:48)
[2023-09-02] MEDS: traMADol HCl 50 MG TAB PO SCH ×6 (03:31→23:50)
[2023-09-02 05:06] LABS: #Monocytes 1.1 thou/uL (0.11-0.59); #Neutrophils 4.1 thou/uL (1.40-6.50); %Basophils 0.4 % (0.0-1.0); %Eosinophils 0.1 % (0.0-10.0); %Lymphocytes 28.7 % (21.0-51.0); %Monocytes 14.5 % (0.0-10.0); Hematocrit 37.4 % (36.0-47.0); Hemoglobin 11.4 g/dL (12.0-16.0); Mean Corpuscular HGB CONC 30.5 g/dL (32.0-36.0); Mean Corpuscular Hemoglobin 25.1 pg (27.0-31.0); Mean Corpuscular Volume 82.2 fl (78.0-98.0); Platelet Count 342 10x3/uL (130-400); RBC Distribution Width 14.9 % (11.5-14.5); Red Blood Cell (RBC) Count 4.55 mill/uL (4.20-5.40); White Blood Cell (WBC) Count 7.3 10x3/uL (4.8-10.8)
[2023-09-02 05:31] LABS: Anion Gap 11 mmol/L (10-20); BUN (Urea Nitrogen) 13 mg/dL (9.8-20.1); Calc. Creatinine Clearance 110 mL/min (70-130); Calcium 9.9 mg/dL (7.8-10.44); Carbon Dioxide 29 mmol/L (23-31); Chloride 103 mmol/L (98-107); Estimated GFR 90; Glucose 133 mg/dL (83-110); Potassium 3.5 mmol/L (3.5-5.1); Sodium 139 mmol/L (136-145)
[2023-09-02] MEDS: ALPRAZolam 0.5 MG TAB PO SCH ×3 (05:59→20:24)
[2023-09-02] MEDS: Citalopram 10 MG TAB PO SCH (08:19)
[2023-09-02] MEDS: Metamucil PACK PO SCH (08:19)
[2023-09-02] MEDS: Isosorbide Mononitrate 30 MG ER.TAB PO SCH (08:19)
[2023-09-02] MEDS: Senokot S 8.6-50 MG TAB PO SCH (08:19)
[2023-09-02] MEDS: Multivit, Therapeutic 1 TAB PO SCH (08:19)
[2023-09-02] MEDS: Melatonin 3 MG TAB PO SCH (20:24)
[2023-09-03] MEDS: traMADol HCl 50 MG TAB PO SCH ×3 (02:59→09:47)
[2023-09-03 05:06] LABS: #Monocytes 1.1 thou/uL (0.11-0.59); #Neutrophils 3.5 thou/uL (1.40-6.50); %Basophils 0.3 % (0.0-1.0); %Eosinophils 0.1 % (0.0-10.0); %Lymphocytes 35.2 % (21.0-51.0); %Monocytes 14.7 % (0.0-10.0); %Neutrophils 49.4 % (42.0-75.0); Hematocrit 35.7 % (36.0-47.0); Hemoglobin 10.9 g/dL (12.0-16.0); Mean Corpuscular HGB CONC 30.5 g/dL (32.0-36.0); Mean Corpuscular Hemoglobin 25.2 pg (27.0-31.0); Mean Corpuscular Volume 82.6 fl (78.0-98.0); Mean Platelet Volume 9.5 fL (7.4-10.4); Platelet Count 357 10x3/uL (130-400); RBC Distribution Width 15.1 % (11.5-14.5); Red Blood Cell (RBC) Count 4.32 mill/uL (4.20-5.40); White Blood Cell (WBC) Count 7.1 10x3/uL (4.8-10.8)
[2023-09-03 05:32] LABS: Anion Gap 12 mmol/L (10-20); BUN (Urea Nitrogen) 19 mg/dL (9.8-20.1); Calc. Creatinine Clearance 94 mL/min (70-130); Calcium 9.7 mg/dL (7.8-10.44); Carbon Dioxide 28 mmol/L (23-31); Chloride 102 mmol/L (98-107); Estimated GFR 87; Glucose 121 mg/dL (83-110); Potassium 3.8 mmol/L (3.5-5.1); Sodium 138 mmol/L (136-145)
[2023-09-03] MEDS: ALPRAZolam 0.5 MG TAB PO SCH (05:41)
[2023-09-03] MEDS: Multivit, Therapeutic 1 TAB PO SCH (09:48)
[2023-09-03] MEDS: Isosorbide Mononitrate 30 MG ER.TAB PO SCH (09:48)
[2023-09-03] MEDS: Metamucil PACK PO SCH (09:48)
[2023-09-03] MEDS: Citalopram 10 MG TAB PO SCH (09:48)
[2023-09-03] MEDS: Senokot S 8.6-50 MG TAB PO SCH (09:48)
[2023-09-03 11:33] VITALS: BP 144/88; TEMP 97.9
== END 2023-09-03 13:02 | DRG 884 ==
LOC: ERS 17:59 → SURG A 22:13 → OBSVTOIN 09-02 11:33
PROVIDERS: ADMIT Internal Medicine; ATTEND Internal Medicine
DX: R41.81 Age-related cognitive decline (principal); I10 Essential (primary) hypertension; E78.5 Hyperlipidemia, unspecified; E11.9 Type 2 diabetes mellitus without complications; D64.9 Anemia, unspecified; Z96.653 Presence of artificial knee joint, bilateral; I25.10 Atherosclerotic heart disease of native coronary artery without angina pectoris; Z79.4 Long term (current) use of insulin; Z79.899 Other long term (current) drug therapy; Z98.890 Other specified postprocedural states; Z90.89 Acquired absence of other organs
CPT/HCPCS: 36415; 36416; 70551; 80048; 80053; 81001; 85025; 87077; 87086; 87186; G0378; J2185; J3490

== ENCOUNTER 2024-09-04 08:54 | Outpatient (CLI) | payer MEDICARE, OTHER ==
[2024-09-04 10:49] LABS: #Basophils Less than 0.03 10x3/uL (0.0-0.2); #Eosinophils Less than 0.03 10x3/uL (0.0-0.7); %Basophils 0.2 % (0.0-1.0); %Lymphocytes 20.9 % (21.0-51.0); %Monocytes 10.4 % (0.0-10.0); %Neutrophils 67.8 % (42.0-75.0); Hemoglobin 12.4 g/dL (12.0-16.0); Mean Corpuscular Hemoglobin 28.5 pg (27.0-31.0); Mean Platelet Volume 9.4 fL (7.4-10.4); Platelet Count 336 10x3/uL (130-400); Red Blood Cell (RBC) Count 4.35 mill/uL (4.20-5.40)
[2024-09-04 11:12] LABS: Anion Gap 14 mmol/L (10-20); BUN (Urea Nitrogen) 14 mg/dL (9.8-20.1); Calc. Creatinine Clearance 0 mL/min (70-130); Calcium 9.8 mg/dL (7.8-10.44); Carbon Dioxide 30 mmol/L (23-31); Chloride 100 mmol/L (98-107); Estimated GFR 87; Glucose 146 mg/dL (83-110); Potassium 4.1 mmol/L (3.5-5.1); Sodium 140 mmol/L (136-145)
== END 2024-09-04 08:55 | disposition home or self-care (01) ==
LOC: LABBT 08:54
PROVIDERS: ATTEND Orthopaedic Surgery Hand Surgery
DX: Z01.812 Encounter for preprocedural laboratory examination (principal); G56.22 Lesion of ulnar nerve, left upper limb; G56.02 Carpal tunnel syndrome, left upper limb
CPT/HCPCS: 80048; 85025

== ENCOUNTER 2024-09-10 12:06 | Inpatient (IN) | payer MEDICARE, OTHER ==
[2024-09-10] MEDS ORDERED: Betamet Acet/Betamet Na Ph 30 MG/5 ML VIAL ONE (12:57)
[2024-09-10] MEDS ORDERED: Bupivacaine PF 0.5% 30 ML VIAL ONE (12:58)
[2024-09-10] MEDS ORDERED: fentaNYL PF 100 MCG/2 ML SYRINGE ONE ×2 (13:15→15:54)
[2024-09-10] MEDS ORDERED: CEFAZOLIN 2 GM VIAL ONE (13:26)
[2024-09-10] MEDS ORDERED: HYDROcodone/Acetaminophen 5/325 mg Tablet PO PRN (13:58)
[2024-09-10] MEDS ORDERED: Promethazine HCl 25 MG/ML VIAL IM PRN ×2 (13:58→17:49)
[2024-09-10] MEDS ORDERED: Acetaminophen 325 MG TAB PO PRN (13:58)
[2024-09-10] MEDS ORDERED: Communication Order-Pharmacy FS SCH ×2 (14:00→18:30)
[2024-09-10] MEDS ORDERED: Meperidine HCl/PF 25 MG (1 mL) VIAL IM PRN (14:03)
[2024-09-10] MEDS ORDERED: Ropivacaine 0.5% HCl/PF (150 MG/30 ML VIAL) ONE (14:37)
[2024-09-10] MEDS ORDERED: Labetalol HCl 100 MG/20 ML VIAL ONE (14:37)
[2024-09-10] MEDS ORDERED: Esmolol 100 MG/10 ML VIAL ONE (14:37)
[2024-09-10] MEDS ORDERED: Midazolam HCl 2 mg/2 ml Vial ONE (15:02)
[2024-09-10] MEDS ORDERED: Propofol 1,000 MG/100 ML VIAL IV ONE (15:52)
[2024-09-10] MEDS ORDERED: Ondansetron HCl/PF 4 MG/2 ML Vial IVP PRN (17:49)
[2024-09-10] MEDS ORDERED: HYDROmorphone 2 MG/ML VIAL SLOW IVP PRN (17:49)
[2024-09-10] MEDS ORDERED: Morphine Sulfate 2 MG/ML SYRINGE SLOW IVP PRN (17:49)
[2024-09-10] MEDS ORDERED: PACU-Morphine 4MG/ML VIAL SLOW IVP PRN (17:49)
[2024-09-10] MEDS ORDERED: fentaNYL 50 mcg/mL 1 mL Vial ONE (18:26)
[2024-09-10] MEDS: Morphine 4 MG/ML VIAL SLOW IVP PRN (20:46)
[2024-09-10] MEDS: Aspirin 81 mg Enteric Coated Tablet PO SCH (20:47)
[2024-09-10] MEDS ORDERED: Aspirin 81 mg Enteric Coated Tablet PO SCH (21:00)
[2024-09-10] MEDS ORDERED: Calcium Carbonate 500 MG ChewTAB PO PRN (21:45)
[2024-09-10] MEDS ORDERED: Polyethylene Glycol 3350 17 GM Packet PO PRN (21:45)
[2024-09-10] MEDS: CEFAZOLIN 2 GM in Sodium Chloride 0.9% 100 ML IVPB SCH (22:09)
[2024-09-10] MEDS: ALPRAZolam 0.5 MG TAB PO SCH (22:10)
[2024-09-10] MEDS ORDERED: Dextrose 50% Abboject 50 ML SYRINGE SLOW IVP PRN (22:28)
[2024-09-10] MEDS ORDERED: Glucagon 1 MG/ML KIT IM PRN (22:28)
[2024-09-10] MEDS ORDERED: Dextrose 5% in Water 1,000 ML IV PRN (22:28)
[2024-09-10] MEDS ORDERED: Insulin Lispro 100 UNIT/ML 10 ML VIAL SC PRN (22:28)
[2024-09-10 22:58] LABS: #Basophils 0.03 10x3/uL (0.0-0.2); #Eosinophils Less than 0.03 10x3/uL (0.0-0.7); %Basophils 0.2 % (0.0-1.0); %Lymphocytes 6.8 % (21.0-51.0); %Monocytes 7.4 % (0.0-10.0); %Neutrophils 84.7 % (42.0-75.0); Hematocrit 41.1 % (36.0-47.0); Hemoglobin 12.9 g/dL (12.0-16.0); Mean Corpuscular HGB CONC 31.4 g/dL (32.0-36.0); Mean Corpuscular Hemoglobin 28.7 pg (27.0-31.0); Mean Corpuscular Volume 91.3 fL (78.0-98.0); Mean Platelet Volume 10.1 fL (7.4-10.4); Platelet Count 302 10x3/uL (130-400); RBC Distribution Width 14.8 % (11.5-14.5)
[2024-09-10 23:33] LABS: ALT (SGPT) 23 U/L (8-55); AST (SGOT) 33 U/L (5-34); Albumin 3.7 g/dL (3.4-4.8); Alkaline Phosphatase 65 U/L (40-110); Anion Gap 16 mmol/L (10-20); BUN (Urea Nitrogen) 8 mg/dL (9.8-20.1); Bilirubin, Total 0.4 mg/dL (0.2-1.2); Calc. Creatinine Clearance 83 mL/min (70-130); Calcium 9.1 mg/dL (7.8-10.44); Carbon Dioxide 26 mmol/L (23-31); Chloride 97 mmol/L (98-107); Estimated GFR 84; Globulin 4.1 g/dL (2.4-3.5); Glucose 235 mg/dL (83-110); Magnesium 1.9 mg/dL (1.6-2.6); Potassium 4.7 mmol/L (3.5-5.1); Protein, Total 7.8 g/dL (5.8-8.1); Sodium 134 mmol/L (136-145)
[2024-09-11] MEDS: Propranolol HCl 20 MG TAB PO SCH (08:49)
[2024-09-11] MEDS: Multivit, Therapeutic 1 TAB PO SCH (08:49)
[2024-09-11] MEDS: ALPRAZolam 1 MG TAB PO SCH (08:49)
[2024-09-11] MEDS: Citalopram 20 MG TAB PO SCH (08:49)
[2024-09-11] MEDS: Isosorbide Mononitrate 30 MG ER.TAB PO SCH (08:49)
[2024-09-11] MEDS: Acetaminophen/Codeine 30-300mg Tablet PO PRN (08:49)
[2024-09-11] MEDS: Alogliptin 6.25 MG TAB PO SCH (08:49)
[2024-09-11] MEDS: Cholecalciferol 1,000 UNITS (25 MCG) TAB PO SCH (08:50)
[2024-09-11] MEDS: Senokot S 8.6-50 MG TAB PO SCH (08:50)
[2024-09-11] MEDS: traMADol HCl 50 MG TAB PO PRN (09:33)
[2024-09-11] MEDS: Insulin Lispro 100 UNIT/ML 10 ML VIAL SC PRN (17:30)
[2024-09-11] MEDS: Atorvastatin Calcium 10 MG TAB PO SCH (21:50)
[2024-09-12] MEDS: HYDROcodone/Acetaminophen 10/325 mg Tablet PO PRN (02:21)
[2024-09-12 06:37] LABS: #Basophils 0.03 10x3/uL (0.0-0.2); #Eosinophils Less than 0.03 10x3/uL (0.0-0.7); %Basophils 0.4 % (0.0-1.0); %Eosinophils 0.1 % (0.0-10.0); %Lymphocytes 24.4 % (21.0-51.0); %Monocytes 15.3 % (0.0-10.0); Hematocrit 36.5 % (36.0-47.0); Hemoglobin 11.3 g/dL (12.0-16.0); Mean Corpuscular Hemoglobin 28.7 pg (27.0-31.0); Mean Corpuscular Volume 92.6 fL (78.0-98.0); Mean Platelet Volume 9.6 fL (7.4-10.4); Platelet Count 295 10x3/uL (130-400); Red Blood Cell (RBC) Count 3.94 mill/uL (4.20-5.40)
[2024-09-12 06:54] LABS: Anion Gap 11 mmol/L (10-20); BUN (Urea Nitrogen) 13 mg/dL (9.8-20.1); Calc. Creatinine Clearance 106 mL/min (70-130); Carbon Dioxide 29 mmol/L (23-31); Chloride 100 mmol/L (98-107); Estimated GFR 86; Glucose 126 mg/dL (83-110); Potassium 4.1 mmol/L (3.5-5.1); Sodium 136 mmol/L (136-145)
[2024-09-12] MEDS: Milk Of Magnesia 30 ML UDCUP PO PRN (20:18)
[2024-09-13] MEDS: Ipratropium/Albuterol 3 ML NEB NEB PRN (01:22)
[2024-09-13 02:05] LABS: Troponin I 0.021 ng/mL (< 0.028)
[2024-09-13 06:45] VITALS: BMI 41.6
[2024-09-13] MEDS: Ondansetron PF 4 MG/2 ML Vial SLOW IVP PRN (09:18)
[2024-09-13] MEDS: Milk Of Magnesia 30 ML UDCUP PO SCH (10:25)
[2024-09-13] MEDS: TETANUS, DIPHTHERIA TOX,ADULT (TDVAX) 0.5 ML VIAL IM ONE (11:58)
[2024-09-13 23:32] VITALS: BP 115/76; TEMP 97.8
== END 2024-09-13 21:55 | DRG 40 ==
LOC: SDC 12:06 → 2NO 20:24 → SURG A 09-11 17:50
PROVIDERS: ADMIT Orthopaedic Surgery Hand Surgery; ATTEND Orthopaedic Surgery Hand Surgery
PROC: 01N50ZZ Release Median Nerve, Open Approach (ICD-10-PCS; principal; 2024-09-10)
PROC: 01Q40ZZ Repair Ulnar Nerve, Open Approach (ICD-10-PCS; 2024-09-10)
DX: G56.02 Carpal tunnel syndrome, left upper limb (principal); J96.01 Acute respiratory failure with hypoxia; I50.32 Chronic diastolic (congestive) heart failure; G56.22 Lesion of ulnar nerve, left upper limb; E78.5 Hyperlipidemia, unspecified; I25.10 Atherosclerotic heart disease of native coronary artery without angina pectoris; E11.65 Type 2 diabetes mellitus with hyperglycemia; I11.0 Hypertensive heart disease with heart failure; F41.9 Anxiety disorder, unspecified
CPT/HCPCS: 36415; 36416; 71045; 80048; 80053; 83735; 83880; 84484; 85025; 94640; A6223; J0665; J0702; J1815; J2250; J2272; J2405; J2704; J3010; J7620